=== PATIENT | female | born 1990 | race Caucasian/White ===

== ENCOUNTER 2021-11-08 14:54 | Outpatient (CLI) | payer OTHER ==
[~2021-11-08 14:54] MED LIST: COLACE 100MG C100 MG PO; IBUPROFEN600 MG PO; NORCO 5-325 TA1 EACH PO
== END 2021-11-08 20:22 | disposition home or self-care (01) ==
LOC: GENOP 14:54
DX: O47.03 False labor before 37 completed weeks of gestation, third trimester (principal); O99.891 Other specified diseases and conditions complicating pregnancy; N89.8 Other specified noninflammatory disorders of vagina; O99.343 Other mental disorders complicating pregnancy, third trimester; F31.9 Bipolar disorder, unspecified; F41.1 Generalized anxiety disorder; O99.353 Diseases of the nervous system complicating pregnancy, third trimester; G43.909 Migraine, unspecified, not intractable, without status migrainosus; Z88.1 Allergy status to other antibiotic agents; Z3A.34 34 weeks gestation of pregnancy
CPT/HCPCS: 59025; 81001; 82731; 83518; 96360; 96361; 96372; J3105; J7120

== ENCOUNTER 2021-11-27 15:51 | Outpatient (CLI) | payer OTHER | END 2021-11-27 19:11 | disposition home or self-care (01) | LOC: GENOP 15:51 | DX: O47.1 False labor at or after 37 completed weeks of gestation (principal); O99.343 Other mental disorders complicating pregnancy, third trimester; F31.9 Bipolar disorder, unspecified; F42.9 Obsessive-compulsive disorder, unspecified; Z88.1 Allergy status to other antibiotic agents; Z79.899 Other long term (current) drug therapy; Z3A.37 37 weeks gestation of pregnancy | CPT/HCPCS: 81001; 83518; G0463 ==

== ENCOUNTER 2021-12-03 12:43 | Inpatient (IN) | payer OTHER ==
[~2021-12-03] VITALS: Ht 152.4 cm; Wt 87.5 kg
[2021-12-03 14:58] LABS: HEMOGLOBIN 12.6 gm/dl (12.3-15.3); RED BLOOD COUNT 4.6 M/UL (4.00-5.10); WHITE BLOOD COUNT 8.5 K/UL (4.5-11.0)
[2021-12-03] MEDS ORDERED: COLACE 100MG C100 MG PO (15:24)
[2021-12-03] MEDS ORDERED: IBUPROFEN800 MG PO (15:24)
[2021-12-03] MEDS ORDERED: HYDROCODON-ACE1 EAC2 PO (15:24)
[2021-12-04 06:28] LABS: HEMOGLOBIN 10.4 gm/dl (12.3-15.3)
== END 2021-12-05 15:13 | disposition home or self-care (01) | DRG 788 ==
LOC: GENOP 12:43 → OB 14:21
PROVIDERS: ADMIT Obstetrics & Gynecology
PROC: 10D00Z1 Extraction of Products of Conception, Low, Open Approach (ICD-10-PCS; principal; 2021-12-03 16:27)
DX: O34.211 Maternal care for low transverse scar from previous cesarean delivery (principal); N85.8 Other specified noninflammatory disorders of uterus; O99.353 Diseases of the nervous system complicating pregnancy, third trimester; O99.62 Diseases of the digestive system complicating childbirth; K66.0 Peritoneal adhesions (postprocedural) (postinfection); G43.909 Migraine, unspecified, not intractable, without status migrainosus; Z20.822 Contact with and (suspected) exposure to COVID-19; Z3A.38 38 weeks gestation of pregnancy; Z37.0 Single live birth; O99.513 Diseases of the respiratory system complicating pregnancy, third trimester; J45.909 Unspecified asthma, uncomplicated; O99.343 Other mental disorders complicating pregnancy, third trimester; F31.9 Bipolar disorder, unspecified
CPT/HCPCS: 36415; 81001; 82800; 83518; 85014; 85018; 85025; 86850; 86900; 86901; 90471; 90715; C9113; J1580; J1885; J2250; J2274; J2370; J2405; J2590; J3010; J7120; U0002